=== PATIENT | female | born 1980 | race Caucasian/White ===

== ENCOUNTER 2016-11-17 12:45 | Emergency (ER) | payer OTHER ==
[~2016-11-17] VITALS: Ht 157.5 cm; Wt 106.7 kg
[~2016-11-17 12:45] MED LIST: ADVIL200 MG PO; BACTRIM,SEPT1 TABLET PO; BIOTIN1000 MICRO PO; CLEOCIN300 MG PO; DIAZEPAM5 MG PO; DIFLUCAN150 MG PO; FIORICET,ESG1 TABLET PO; LEXAPRO20 MG PO; MINOCYCLINE HC100 MG PO; NAPROSYN500 MG PO; NORCO 5/3251 TABLET PO; PERCOCET 5/31 TABLET PO; PROBIOTIC250 MG PO; SKELAXIN800 MG PO; TECFIDERA240 MG PO; TRAMADOL HCL50 MG PO; TYLENOL WITH C1 EACH PO; VALTREX50 MG/ML PO; VITAMIN D1000 UNIT PO; ZYRTEC10 M2 PO
[2016-11-17 12:48] VITALS: BP 112/71
[2016-11-17] MEDS ORDERED: KEFLEX500 MG PO (16:03)
== END 2016-11-17 16:14 | disposition home or self-care (01) ==
LOC: EME 12:45
DX: I80.8 Phlebitis and thrombophlebitis of other sites (principal); Z86.718 Personal history of other venous thrombosis and embolism; G35 Multiple sclerosis; F17.200 Nicotine dependence, unspecified, uncomplicated
CPT/HCPCS: 93971; 99281; 99283; J1885

== ENCOUNTER 2017-03-07 20:18 | Emergency (ER) | payer OTHER ==
[~2017-03-07] VITALS: Ht 157.5 cm; Wt 104.4 kg
[~2017-03-07 20:18] MED LIST changes: +KEFLEX500 MG PO
[2017-03-07 20:25] VITALS: BP 119/76
[2017-03-07 22:25] LABS: HEMATOCRIT 44.8 % (36.0-46.0); MCH 30.5 PG (29.0-34.0); MCHC 33.9 G/DL (30.0-36.0); RBC DIS.WIDTH-CV 12.2 % (11.8-14.6); RBC DIS.WIDTH-SD 39.9 % (39-53); RED BLOOD COUNT 4.98 M/uL (3.80-5.20); WHITE BLOOD COUNT 10.1 K/uL (4.1-10.2)
[2017-03-07 22:57] LABS: CHLORIDE 111 mEq/L (99-109); POTASSIUM 3.7 mEq/L (3.7-5.4); SODIUM 141 mEq/L (136-147)
[2017-03-07 22:58] LABS: GLUCOSE 92 mg/dL (70-99)
[2017-03-07 22:59] LABS: MEAN PLAT.VOLUME 12.5 uM^3 (9.5-12.4); PLAT.SUFFICIENCY ADEQUATE; PLATELET COUNT 163 K/uL (156-360)
[2017-03-07 23:00] LABS: ANION GAP 9 MEQ/L (2-14)
[2017-03-07 23:02] LABS: GFR ESTIMATE (CALCULATED) > 59 mL/min/
[2017-03-07 23:03] LABS: UREA NITROGEN (BUN) 7 mg/dL (9-23)
[2017-03-08] MEDS ORDERED: TROKENDI XR100 MG PO (16:27)
[2017-03-08] MEDS ORDERED: ERGOCALCIF50000 UNIT PO (16:28)
[2017-03-08] MEDS ORDERED: LEXAPRO20 MG PO (16:29)
== END 2017-03-08 00:41 | disposition home or self-care (01) ==
LOC: EME 20:18
PROVIDERS: Physician Assistant
DX: H46.9 Unspecified optic neuritis (principal); G35 Multiple sclerosis; F17.200 Nicotine dependence, unspecified, uncomplicated
CPT/HCPCS: 80048; 85027; 99281; 99284; J1200; J2765; J2930; J7030; J7050

== ENCOUNTER 2017-09-19 12:51 | Emergency (ER) | payer OTHER ==
[~2017-09-19] VITALS: Ht 157.5 cm; Wt 98.1 kg
[~2017-09-19 12:51] MED LIST changes: +ERGOCALCIF50000 UNIT PO; +TROKENDI XR100 MG PO
[2017-09-19] MEDS ORDERED: PREDNISONE10 M1 PO (15:03)
[2017-09-19 15:15] VITALS: BP 106/58
== END 2017-09-19 15:21 | disposition home or self-care (01) ==
LOC: EME 12:51
DX: G35 Multiple sclerosis (principal); Z91.81 History of falling; F17.200 Nicotine dependence, unspecified, uncomplicated; Z86.718 Personal history of other venous thrombosis and embolism; Z88.2 Allergy status to sulfonamides; Z88.8 Allergy status to other drugs, medicaments and biological substances
CPT/HCPCS: 73130; 99281; 99284; J7512